=== PATIENT | male | born 2000 | race Caucasian/White ===

== ENCOUNTER 2019-06-03 11:11 | Emergency (ER) | payer SELFPAY ==
[~2019-06-03] VITALS: Ht 160 cm; Wt 47.6 kg
[2019-06-03 11:32] VITALS: Ht 160 cm; Wt 47.6 kg
[2019-06-03 13:52] VITALS: BP 113/74
== END 2019-06-03 13:52 | disposition home or self-care (01) ==
LOC: ED 11:11
DX: S83.91XA Sprain of unspecified site of right knee, initial encounter (principal); S93.401A Sprain of unspecified ligament of right ankle, initial encounter; W18.30XA Fall on same level, unspecified, initial encounter; Y93.66 Activity, soccer; Y92.322 Soccer field as the place of occurrence of the external cause; Y99.8 Other external cause status

== ENCOUNTER 2019-06-05 17:21 | Emergency (ER) | payer SELFPAY ==
[~2019-06-05] VITALS: Ht 160 cm; Wt 48.1 kg
[2019-06-05 18:54] VITALS: Ht 160 cm; Wt 48.1 kg
[2019-06-05 19:02] VITALS: BP 98/56
== END 2019-06-05 19:02 | disposition home or self-care (01) ==
LOC: ED 17:21
DX: M25.561 Pain in right knee (principal); M25.571 Pain in right ankle and joints of right foot